=== PATIENT | female | born 1940 | race Native Hawaiian/Other Pacific Islander ===

== ENCOUNTER 2016-12-14 10:13 | Outpatient (CLI) | payer OTHER, MEDICARE ==
[~2016-12-14 10:13] MED LIST: ASA LO-DOSE81 MG OR; CETI10TA PO; CIPR500T PO; FISH OIL1000 M1 OR; HYDR25TA15 PO; LANS30CA PO; LEVO0.0529 PO; MIRAPEX0.5 MG OR; PHEN100C15 PO; VITA D-1000 OR; Z-PAK PO
== END 2016-12-14 19:02 | disposition home or self-care (01) ==
LOC: RAD 10:13
DX: M54.2 Cervicalgia (principal)

== ENCOUNTER 2016-12-15 07:50 | Outpatient (CLI) | payer OTHER, MEDICARE ==
[2016-12-15 08:53] LABS: POTASSIUM 3.6 mmol/L (3.6-5.2); SODIUM 138 mmol/L (136-145)
== END 2016-12-15 19:55 | disposition home or self-care (01) ==
LOC: LABW 07:50
PROVIDERS: Internal Medicine
DX: E03.8 Other specified hypothyroidism (principal); G40.909 Epilepsy, unspecified, not intractable, without status epilepticus
CPT/HCPCS: 36415; 80053; 80061; 80185; 83735; 84439; 84443

== ENCOUNTER 2016-12-29 10:57 | Outpatient (CLI) | payer OTHER, MEDICARE ==
[2016-12-29 11:27] LABS: PLATELET COUNT 212 K/uL (152-353)
[2016-12-29 12:54] LABS: POTASSIUM 3.8 mmol/L (3.6-5.2); SODIUM 136 mmol/L (136-145)
== END 2016-12-29 19:31 | disposition home or self-care (01) ==
LOC: LABW 10:57
PROVIDERS: Internal Medicine Hematology & Oncology
DX: C83.18 Mantle cell lymphoma, lymph nodes of multiple sites (principal)
CPT/HCPCS: 36415; 80053; 83615; 85027

== ENCOUNTER 2016-12-29 11:58 | Outpatient (CLI) | payer OTHER, MEDICARE | END 2016-12-29 19:31 | disposition home or self-care (01) | LOC: RAD 11:58 | DX: M79.604 Pain in right leg (principal) ==

== ENCOUNTER 2017-03-28 10:04 | Outpatient (CLI) | payer OTHER, MEDICARE ==
[2017-03-28 10:29] LABS: PLATELET COUNT 188 K/uL (152-353)
[2017-03-28 10:45] LABS: SODIUM 139 mmol/L (136-145)
== END 2017-03-28 19:21 | disposition home or self-care (01) ==
LOC: LABW 10:04
PROVIDERS: Internal Medicine Hematology & Oncology
DX: C83.18 Mantle cell lymphoma, lymph nodes of multiple sites (principal)
CPT/HCPCS: 36415; 80053; 83615; 85027

== ENCOUNTER 2017-04-11 11:09 | Outpatient (CLI) | payer OTHER, MEDICARE ==
[2017-04-11 11:41] LABS: POTASSIUM 4.9 mmol/L (3.6-5.2); SODIUM 140 mmol/L (136-145)
== END 2017-04-11 12:15 | disposition home or self-care (01) ==
LOC: LABW 11:09
PROVIDERS: Neurological Surgery
DX: I67.1 Cerebral aneurysm, nonruptured (principal); Z51.81 Encounter for therapeutic drug level monitoring
CPT/HCPCS: 36415; 80048; 85610; 85730

== ENCOUNTER 2017-05-23 09:54 | Outpatient (CLI) | payer OTHER, MEDICARE ==
[2017-05-23 10:28] LABS: PLATELET COUNT 196 K/uL (152-353)
[2017-05-23 10:52] LABS: POTASSIUM 4.2 mmol/L (3.6-5.2); SODIUM 141 mmol/L (136-145)
== END 2017-05-23 19:14 | disposition home or self-care (01) ==
LOC: LABW 09:54
PROVIDERS: Internal Medicine Hematology & Oncology
DX: C83.18 Mantle cell lymphoma, lymph nodes of multiple sites (principal)
CPT/HCPCS: 36415; 80053; 83615; 85027

== ENCOUNTER 2017-08-24 12:07 | Emergency (ER) | payer OTHER, MEDICARE ==
[~2017-08-24] VITALS: Ht 175.3 cm; Wt 59.0 kg
[2017-08-24 12:15] VITALS: TEMP 98.3
[2017-08-24 15:24] VITALS: BP 132/76
== END 2017-08-24 15:54 | disposition home or self-care (01) ==
LOC: ED 12:07
DX: S72.091A Other fracture of head and neck of right femur, initial encounter for closed fracture (principal); W18.39XA Other fall on same level, initial encounter; Y92.098 Other place in other non-institutional residence as the place of occurrence of the external cause
CPT/HCPCS: 96372; 99283; J1885

== ENCOUNTER 2017-09-24 11:00 | Outpatient (CLI) | payer OTHER, MEDICARE ==
[2017-09-24 11:50] LABS: PLATELET COUNT 173 K/uL (152-353)
[2017-09-24 12:38] LABS: POTASSIUM 3.8 mmol/L (3.6-5.2); SODIUM 139 mmol/L (136-145)
== END 2017-09-24 19:05 | disposition home or self-care (01) ==
LOC: LABW 11:00
PROVIDERS: Internal Medicine Hematology & Oncology
DX: C83.18 Mantle cell lymphoma, lymph nodes of multiple sites (principal)
CPT/HCPCS: 36415; 80053; 83615; 85027

== ENCOUNTER 2017-10-15 09:04 | Outpatient (CLI) | payer OTHER, MEDICARE | END 2017-10-15 19:16 | disposition home or self-care (01) | LOC: MAMMO 09:04 | DX: Z12.31 Encounter for screening mammogram for malignant neoplasm of breast (principal); M81.0 Age-related osteoporosis without current pathological fracture ==

== ENCOUNTER 2017-11-01 10:50 | Outpatient (CLI) | payer OTHER, MEDICARE ==
[2017-11-01 11:10] LABS: PLATELET COUNT 197 K/uL (152-353)
[2017-11-01 11:15] LABS: POTASSIUM 3.8 mmol/L (3.6-5.2); SODIUM 139 mmol/L (136-145)
== END 2017-11-01 22:32 | disposition home or self-care (01) ==
LOC: LABW 10:50
PROVIDERS: Internal Medicine Hematology & Oncology
DX: C83.18 Mantle cell lymphoma, lymph nodes of multiple sites (principal); E55.9 Vitamin D deficiency, unspecified
CPT/HCPCS: 36415; 80053; 82306; 85027

== ENCOUNTER 2017-11-10 10:45 | Emergency (ER) | payer OTHER, MEDICARE ==
[~2017-11-10] VITALS: Ht 175.3 cm; Wt 59.0 kg
[2017-11-10 10:50] VITALS: BP 181/88; TEMP 98.4
[2017-11-10 11:37] LABS: PLATELET COUNT 203 K/uL (152-353)
== END 2017-11-10 12:45 | disposition home or self-care (01) ==
LOC: ED 10:45
DX: R59.9 Enlarged lymph nodes, unspecified (principal); Z98.890 Other specified postprocedural states
CPT/HCPCS: 36415; 85027; 99283

== ENCOUNTER 2017-11-13 09:41 | Outpatient (CLI) | payer OTHER, MEDICARE | END 2017-11-13 19:06 | disposition home or self-care (01) | LOC: US 09:41 | DX: K11.8 Other diseases of salivary glands (principal) ==

== ENCOUNTER 2018-02-28 10:05 | Outpatient (CLI) | payer OTHER, MEDICARE | END 2018-02-28 19:28 | disposition home or self-care (01) | LOC: RESP 10:05 | DX: I72.8 Aneurysm of other specified arteries (principal); J44.9 Chronic obstructive pulmonary disease, unspecified | CPT/HCPCS: 94640; 94664 ==

== ENCOUNTER 2018-03-15 08:57 | Outpatient (CLI) | payer OTHER, MEDICARE | END 2018-03-15 09:35 | disposition short-term general hospital (02) | LOC: AMB 08:57 | DX: M25.551 Pain in right hip (principal); W18.39XA Other fall on same level, initial encounter; Y92.098 Other place in other non-institutional residence as the place of occurrence of the external cause | CPT/HCPCS: A0425; A0427 ==

== ENCOUNTER 2018-03-28 17:04 | Outpatient (CLI) | payer OTHER, MEDICARE ==
[2018-03-28 17:20] LABS: PLATELET COUNT 604 K/uL (152-353)
[2018-03-28 17:44] LABS: POTASSIUM 3.9 mmol/L (3.6-5.2)
== END 2018-03-28 19:13 | disposition home or self-care (01) ==
LOC: LABW 17:04
PROVIDERS: Internal Medicine Hematology & Oncology
DX: C83.18 Mantle cell lymphoma, lymph nodes of multiple sites (principal)
CPT/HCPCS: 36415; 80053; 83615; 85027

== ENCOUNTER 2018-04-19 10:25 | Outpatient (CLI) | payer OTHER, MEDICARE | END 2018-04-19 23:15 | disposition home or self-care (01) | LOC: LABW 10:25 | DX: I67.1 Cerebral aneurysm, nonruptured (principal); Z79.01 Long term (current) use of anticoagulants; Z51.81 Encounter for therapeutic drug level monitoring | CPT/HCPCS: 36415; 82565; 84520 ==

== ENCOUNTER 2018-07-07 08:42 | Emergency (ER) | payer OTHER, MEDICARE ==
[~2018-07-07] VITALS: Ht 175.3 cm; Wt 56.7 kg
[2018-07-07 08:53] VITALS: BP 127/80; TEMP 99.5
== END 2018-07-07 12:00 | disposition home or self-care (01) ==
LOC: ED 08:42
DX: S70.02XA Contusion of left hip, initial encounter (principal); S72.115A Nondisplaced fracture of greater trochanter of left femur, initial encounter for closed fracture; W18.39XA Other fall on same level, initial encounter; Y92.89 Other specified places as the place of occurrence of the external cause
CPT/HCPCS: 99282; J2175; J2405

== ENCOUNTER 2018-07-13 15:31 | Outpatient (CLI) | payer OTHER, MEDICARE | END 2018-07-13 16:02 | disposition short-term general hospital (02) | LOC: AMB 15:31 | DX: M25.552 Pain in left hip (principal); W19.XXXA Unspecified fall, initial encounter; Y93.89 Activity, other specified; Y92.89 Other specified places as the place of occurrence of the external cause | CPT/HCPCS: A0425; A0427 ==

== ENCOUNTER 2018-07-26 12:12 | Outpatient (CLI) | payer OTHER, MEDICARE | END 2018-07-26 22:19 | disposition home or self-care (01) | LOC: US 12:12 | DX: M79.89 Other specified soft tissue disorders (principal) ==

== ENCOUNTER 2018-10-09 15:09 | Outpatient (CLI) | payer OTHER, MEDICARE ==
[2018-10-09 15:34] LABS: PLATELET COUNT 199 K/uL (152-353)
[2018-10-09 15:53] LABS: POTASSIUM 3.6 mmol/L (3.6-5.2)
== END 2018-10-09 21:17 | disposition home or self-care (01) ==
LOC: LABW 15:09
PROVIDERS: Internal Medicine Hematology & Oncology
DX: C83.18 Mantle cell lymphoma, lymph nodes of multiple sites (principal)
CPT/HCPCS: 36415; 80053; 83605; 85027

== ENCOUNTER 2019-01-27 10:19 | Outpatient (CLI) | payer OTHER, MEDICARE | END 2019-01-27 20:31 | disposition home or self-care (01) | LOC: LAB 10:19 | DX: N39.0 Urinary tract infection, site not specified (principal) | CPT/HCPCS: 87077; 87086; 87088; 87185; 87186 ==

== ENCOUNTER 2019-02-05 12:29 | Outpatient (CLI) | payer OTHER, MEDICARE ==
[2019-02-05 12:47] LABS: PLATELET COUNT 202 K/uL (152-353)
[2019-02-05 13:17] LABS: POTASSIUM 4.2 mmol/L (3.6-5.2)
== END 2019-02-05 20:06 | disposition home or self-care (01) ==
LOC: LABW 12:29
PROVIDERS: Nurse Practitioner Family
DX: C83.18 Mantle cell lymphoma, lymph nodes of multiple sites (principal); E55.9 Vitamin D deficiency, unspecified
CPT/HCPCS: 36415; 80053; 82306; 83615; 85027

== ENCOUNTER 2019-03-17 11:10 | Outpatient (CLI) | payer OTHER, MEDICARE | END 2019-03-17 22:46 | disposition home or self-care (01) | LOC: RESP 11:10 | DX: J44.9 Chronic obstructive pulmonary disease, unspecified (principal) ==

== ENCOUNTER 2019-09-17 13:44 | Outpatient (CLI) | payer OTHER, MEDICARE ==
[2019-09-17 14:22] LABS: PLATELET COUNT 169 K/uL (152-353)
[2019-09-17 14:29] LABS: POTASSIUM 4.1 mmol/L (3.6-5.2)
== END 2019-09-17 22:00 | disposition home or self-care (01) ==
LOC: LABW 13:44
PROVIDERS: Internal Medicine Medical Oncology
DX: E55.9 Vitamin D deficiency, unspecified (principal); C83.18 Mantle cell lymphoma, lymph nodes of multiple sites
CPT/HCPCS: 36415; 80053; 82306; 83615; 85027

== ENCOUNTER 2019-10-10 07:02 | Outpatient (CLI) | payer OTHER, MEDICARE ==
[2019-10-10 07:48] LABS: PLATELET COUNT 226 K/uL (152-353)
[2019-10-10 08:14] LABS: POTASSIUM 4.2 mmol/L (3.6-5.2)
== END 2019-10-10 19:46 | disposition home or self-care (01) ==
LOC: LABW 07:02
PROVIDERS: Internal Medicine
DX: Z00.00 Encounter for general adult medical examination without abnormal findings (principal); Z13.820 Encounter for screening for osteoporosis; R56.9 Unspecified convulsions; R82.998 Other abnormal findings in urine; Z79.899 Other long term (current) drug therapy
CPT/HCPCS: 36415; 80053; 80061; 80185; 81000; 82306; 84439; 84443; 85027; 87086; 87088

== ENCOUNTER 2019-10-22 08:57 | Outpatient (CLI) | payer OTHER, MEDICARE | END 2019-10-22 19:28 | disposition home or self-care (01) | LOC: MAMMO 08:57 | DX: Z12.31 Encounter for screening mammogram for malignant neoplasm of breast (principal); Z13.820 Encounter for screening for osteoporosis; N95.8 Other specified menopausal and perimenopausal disorders ==

== ENCOUNTER 2019-11-10 11:03 | Outpatient (CLI) | payer OTHER, MEDICARE ==
[~2019-11-10] VITALS: Ht 175.3 cm; Wt 59.0 kg
[2019-11-10 11:20] VITALS: BP 172/86; TEMP 97.6
== END 2019-11-10 12:33 | disposition home or self-care (01) ==
LOC: INF 11:03
DX: M81.0 Age-related osteoporosis without current pathological fracture (principal)
CPT/HCPCS: 36415; 82040; 82310; 96372; J0897

== ENCOUNTER 2019-12-04 13:48 | Outpatient (CLI) | payer OTHER, MEDICARE | END 2019-12-04 22:43 | disposition home or self-care (01) | LOC: LAB 13:48 | DX: E03.8 Other specified hypothyroidism (principal) | CPT/HCPCS: 84439; 84443 ==

== ENCOUNTER 2020-02-26 11:15 | Outpatient (CLI) | payer OTHER, MEDICARE ==
[2020-02-26 11:39] LABS: PLATELET COUNT 207 K/uL (152-353)
[2020-02-26 11:57] LABS: POTASSIUM 3.8 mmol/L (3.6-5.2)
== END 2020-02-26 22:36 | disposition home or self-care (01) ==
LOC: LABW 11:15
PROVIDERS: Internal Medicine Medical Oncology
DX: C83.18 Mantle cell lymphoma, lymph nodes of multiple sites (principal); R91.1 Solitary pulmonary nodule; E55.9 Vitamin D deficiency, unspecified
CPT/HCPCS: 36415; 80053; 83615; 85027

== ENCOUNTER 2020-05-10 10:54 | Outpatient (CLI) | payer OTHER, MEDICARE ==
[~2020-05-10] VITALS: Ht 175.3 cm; Wt 59.0 kg
== END 2020-05-10 21:49 | disposition home or self-care (01) ==
LOC: INF 10:54
DX: M81.0 Age-related osteoporosis without current pathological fracture (principal)
CPT/HCPCS: 36415; 82310; 96372; J0897

== ENCOUNTER 2020-09-02 12:38 | Outpatient (CLI) | payer OTHER, MEDICARE ==
[2020-09-02 12:56] LABS: PLATELET COUNT 234 K/uL (152-353)
[2020-09-02 14:14] LABS: POTASSIUM 4.2 mmol/L (3.6-5.2)
== END 2020-09-02 23:17 | disposition home or self-care (01) ==
LOC: LABW 12:38
PROVIDERS: Internal Medicine Medical Oncology
DX: C34.30 Malignant neoplasm of lower lobe, unspecified bronchus or lung (principal); C83.18 Mantle cell lymphoma, lymph nodes of multiple sites; R91.1 Solitary pulmonary nodule; E55.9 Vitamin D deficiency, unspecified
CPT/HCPCS: 36415; 80053; 83615; 85027

== ENCOUNTER 2020-11-15 11:13 | Outpatient (CLI) | payer OTHER, MEDICARE | END 2020-11-15 20:39 | disposition home or self-care (01) | LOC: MAMMO 11:13 | PROVIDERS: ATTEND Internal Medicine | DX: Z12.31 Encounter for screening mammogram for malignant neoplasm of breast (principal) ==

== ENCOUNTER 2020-12-08 07:47 | Outpatient (CLI) | payer OTHER, MEDICARE ==
[~2020-12-08] VITALS: Ht 175.3 cm; Wt 63.5 kg
[2020-12-08 11:05] VITALS: BP 190/90; TEMP 98
== END 2020-12-08 12:28 | disposition home or self-care (01) ==
LOC: INF 07:47
PROVIDERS: ATTEND Internal Medicine
DX: M81.0 Age-related osteoporosis without current pathological fracture (principal)
CPT/HCPCS: 82310; 96372; J0897

== ENCOUNTER 2020-12-29 15:14 | Outpatient (CLI) | payer OTHER, MEDICARE | END 2020-12-29 19:45 | disposition home or self-care (01) | LOC: CT 15:14 | PROVIDERS: ATTEND Internal Medicine | DX: R51.9 Headache, unspecified (principal) ==

== ENCOUNTER 2021-02-08 07:34 | Outpatient (CLI) | payer OTHER, MEDICARE | END 2021-02-08 19:04 | disposition home or self-care (01) | LOC: LABW 07:34 | PROVIDERS: ATTEND Specialist | DX: G40.909 Epilepsy, unspecified, not intractable, without status epilepticus (principal); Z51.81 Encounter for therapeutic drug level monitoring | CPT/HCPCS: 36415; 80185 ==

== ENCOUNTER 2021-03-09 07:23 | Outpatient (CLI) | payer OTHER, MEDICARE ==
[2021-03-09 08:27] LABS: PLATELET COUNT 227 K/uL (152-353)
[2021-03-09 08:43] LABS: POTASSIUM 4.5 mmol/L (3.6-5.2)
== END 2021-03-09 19:15 | disposition home or self-care (01) ==
LOC: LABW 07:23
PROVIDERS: ATTEND Internal Medicine
DX: Z00.00 Encounter for general adult medical examination without abnormal findings (principal); C34.30 Malignant neoplasm of lower lobe, unspecified bronchus or lung; C83.18 Mantle cell lymphoma, lymph nodes of multiple sites; R91.1 Solitary pulmonary nodule; E55.9 Vitamin D deficiency, unspecified; Z13.820 Encounter for screening for osteoporosis; Z79.899 Other long term (current) drug therapy
CPT/HCPCS: 36415; 80053; 80061; 81000; 82306; 83615; 84439; 84443; 85027

== ENCOUNTER 2021-03-21 13:56 | Outpatient (CLI) | payer OTHER, MEDICARE | END 2021-03-21 19:56 | disposition home or self-care (01) | LOC: RESP 13:56 | PROVIDERS: ATTEND Specialist | DX: G40.909 Epilepsy, unspecified, not intractable, without status epilepticus (principal) ==

== ENCOUNTER 2021-04-15 15:41 | Emergency (ER) | payer OTHER, MEDICARE ==
[~2021-04-15] VITALS: Ht 175.3 cm; Wt 61.2 kg
[2021-04-15 15:41] VITALS: TEMP 98.3
[2021-04-15 16:58] LABS: PLATELET COUNT 185 K/uL (152-353)
[2021-04-15 17:10] LABS: POTASSIUM 4.1 mmol/L (3.6-5.2); SODIUM 143 mmol/L (136-145)
[2021-04-15 18:56] VITALS: BP 130/78
== END 2021-04-15 18:56 | disposition home or self-care (01) ==
LOC: ED 15:41
PROVIDERS: Family Medicine
DX: I10 Essential (primary) hypertension (principal); R51.9 Headache, unspecified; R91.8 Other nonspecific abnormal finding of lung field
CPT/HCPCS: 80053; 84484; 85027; 85379; 93005; 99283

== ENCOUNTER 2021-05-16 15:20 | Outpatient (CLI) | payer OTHER, MEDICARE | END 2021-05-16 21:31 | disposition home or self-care (01) | LOC: MRI 15:20 | PROVIDERS: ATTEND Orthopaedic Surgery | DX: T84.84XA Pain due to internal orthopedic prosthetic devices, implants and grafts, initial encounter (principal); Z96.641 Presence of right artificial hip joint; M54.5 Low back pain; M51.37 Other intervertebral disc degeneration, lumbosacral region; M48.062 Spinal stenosis, lumbar region with neurogenic claudication; R29.898 Other symptoms and signs involving the musculoskeletal system ==

== ENCOUNTER 2021-06-08 12:45 | Outpatient (CLI) | payer OTHER, MEDICARE | END 2021-06-08 19:54 | disposition home or self-care (01) | LOC: INF 12:45 | PROVIDERS: ATTEND Internal Medicine | DX: M81.0 Age-related osteoporosis without current pathological fracture (principal) | CPT/HCPCS: 36415; 82310; 82330 ==

== ENCOUNTER 2021-06-15 13:35 | Outpatient (CLI) | payer OTHER, MEDICARE ==
[2021-06-15 14:02] LABS: POTASSIUM 4.1 mmol/L (3.6-5.2)
== END 2021-06-15 19:04 | disposition home or self-care (01) ==
LOC: LABW 13:35
PROVIDERS: ATTEND Internal Medicine
DX: E83.59 Other disorders of calcium metabolism (principal)
CPT/HCPCS: 36415; 80053

== ENCOUNTER 2021-09-08 13:41 | Outpatient (CLI) | payer OTHER, MEDICARE ==
[2021-09-08 13:56] LABS: PLATELET COUNT 249 K/uL (152-353)
[2021-09-08 14:06] LABS: POTASSIUM 3.9 mmol/L (3.6-5.2)
== END 2021-09-08 19:03 | disposition home or self-care (01) ==
LOC: LABW 13:41
PROVIDERS: ATTEND Internal Medicine Medical Oncology
DX: C34.30 Malignant neoplasm of lower lobe, unspecified bronchus or lung (principal); C83.18 Mantle cell lymphoma, lymph nodes of multiple sites; R91.1 Solitary pulmonary nodule; E55.9 Vitamin D deficiency, unspecified
CPT/HCPCS: 36415; 80053; 83615; 85027

== ENCOUNTER 2021-11-25 13:50 | Outpatient (CLI) | payer OTHER, MEDICARE ==
[2021-11-25 14:08] LABS: PLATELET COUNT 257 K/uL (152-353)
== END 2021-11-25 20:37 | disposition home or self-care (01) ==
LOC: LABW 13:50
PROVIDERS: ATTEND Internal Medicine Medical Oncology
DX: C34.30 Malignant neoplasm of lower lobe, unspecified bronchus or lung (principal); C83.18 Mantle cell lymphoma, lymph nodes of multiple sites; R91.1 Solitary pulmonary nodule; E55.9 Vitamin D deficiency, unspecified
CPT/HCPCS: 36415; 80053; 83615; 85027

== ENCOUNTER 2021-12-07 12:46 | Outpatient (CLI) | payer OTHER, MEDICARE ==
[2021-12-07 15:21] LABS: PLATELET COUNT 233 K/uL (152-353)
== END 2021-12-07 19:39 | disposition home or self-care (01) ==
LOC: LAB 12:46
PROVIDERS: ATTEND Internal Medicine
DX: I10 Essential (primary) hypertension (principal)
CPT/HCPCS: 80053; 80061; 84439; 84443; 85027

== ENCOUNTER 2021-12-16 09:42 | Outpatient (CLI) | payer OTHER, MEDICARE | END 2021-12-16 19:56 | disposition home or self-care (01) | LOC: MAMMO 09:42 | PROVIDERS: ATTEND Internal Medicine | DX: Z12.31 Encounter for screening mammogram for malignant neoplasm of breast (principal) ==

== ENCOUNTER 2022-04-08 10:59 | Emergency (ER) | payer OTHER, MEDICARE ==
[~2022-04-08] VITALS: Ht 175.3 cm; Wt 61.2 kg
[2022-04-08 12:17] VITALS: BP 146/84; TEMP 98.5
== END 2022-04-08 12:17 | disposition home or self-care (01) ==
LOC: ED 10:59
DX: J02.9 Acute pharyngitis, unspecified (principal); U07.1 COVID-19
CPT/HCPCS: 87635; 87651; 99283; U0003

== ENCOUNTER 2022-07-05 14:25 | Outpatient (CLI) | payer OTHER, MEDICARE ==
[2022-07-05 14:53] LABS: PLATELET COUNT 229 K/uL (152-353)
[2022-07-05 15:03] LABS: POTASSIUM 3.8 mmol/L (3.6-5.2)
== END 2022-07-05 19:00 | disposition home or self-care (01) ==
LOC: LABW 14:25
PROVIDERS: ATTEND Nurse Practitioner Family
DX: C34.30 Malignant neoplasm of lower lobe, unspecified bronchus or lung (principal); C83.18 Mantle cell lymphoma, lymph nodes of multiple sites; R91.1 Solitary pulmonary nodule; E55.9 Vitamin D deficiency, unspecified
CPT/HCPCS: 80053; 85027

== ENCOUNTER 2022-11-16 09:19 | Outpatient (CLI) | payer OTHER, MEDICARE ==
[2022-11-16 10:21] LABS: PLATELET COUNT 340 K/uL (152-353)
== END 2022-11-16 18:59 | disposition home or self-care (01) ==
LOC: LABW 09:19
PROVIDERS: ATTEND Internal Medicine
DX: I10 Essential (primary) hypertension (principal); C83.10 Mantle cell lymphoma, unspecified site; M06.9 Rheumatoid arthritis, unspecified; G40.909 Epilepsy, unspecified, not intractable, without status epilepticus; E03.8 Other specified hypothyroidism; R82.998 Other abnormal findings in urine
CPT/HCPCS: 80053; 80061; 80185; 81000; 84439; 84443; 85027; 86431; 87077; 87086; 87088; 87186

== ENCOUNTER 2022-11-22 09:56 | Outpatient (CLI) | payer OTHER, MEDICARE | END 2022-11-22 18:59 | disposition home or self-care (01) | LOC: CT 09:56 | PROVIDERS: ATTEND Internal Medicine | DX: R19.01 Right upper quadrant abdominal swelling, mass and lump (principal) | CPT/HCPCS: Q9963 ==

== ENCOUNTER 2023-01-04 14:37 | Outpatient (CLI) | payer OTHER, MEDICARE ==
[2023-01-04 14:57] LABS: PLATELET COUNT 232 K/uL (152-353)
[2023-01-04 15:09] LABS: POTASSIUM 4.7 mmol/L (3.6-5.2)
== END 2023-01-04 19:21 | disposition home or self-care (01) ==
LOC: LABW 14:37
PROVIDERS: ATTEND Nurse Practitioner Family
DX: C83.18 Mantle cell lymphoma, lymph nodes of multiple sites (principal); C34.30 Malignant neoplasm of lower lobe, unspecified bronchus or lung; E55.9 Vitamin D deficiency, unspecified; R91.1 Solitary pulmonary nodule
CPT/HCPCS: 36415; 80053; 83615; 85027

== ENCOUNTER 2023-02-01 17:15 | Observation (INO) | payer OTHER, MEDICARE ==
[2023-02-01] VITALS (9 sets, daily range): BP systolic 166–203; BP diastolic 64–90; TEMP 98.1
[~2023-02-01] VITALS: Ht 175.3 cm; Wt 63.0 kg
[2023-02-01 19:27] LABS: PLATELET COUNT 226 K/uL (152-353)
[2023-02-01 19:30] LABS: POTASSIUM 4.1 mmol/L (3.6-5.2)
[2023-02-02 01:21] VITALS: BP 206/99; TEMP 97.6; Ht 175.3 cm; Wt 63.0 kg
[2023-02-02 04:00] VITALS: BP 130/74; TEMP 98.2
[2023-02-02 05:38] LABS: PLATELET COUNT 202 K/uL (152-353)
[2023-02-02 05:58] LABS: POTASSIUM 3.9 mmol/L (3.6-5.2)
[2023-02-02 08:15] VITALS: BP 147/76; TEMP 97.2
== END 2023-02-02 11:47 | disposition home or self-care (01) ==
LOC: ED 17:15 → MED/SURG 22:00
PROVIDERS: ADMIT Emergency Medicine; ATTEND Internal Medicine
DX: S42.354A Nondisplaced comminuted fracture of shaft of humerus, right arm, initial encounter for closed fracture (principal); J44.9 Chronic obstructive pulmonary disease, unspecified; E03.8 Other specified hypothyroidism; Z85.118 Personal history of other malignant neoplasm of bronchus and lung; G40.802 Other epilepsy, not intractable, without status epilepticus; I10 Essential (primary) hypertension; W17.89XA Other fall from one level to another, initial encounter; Y92.89 Other specified places as the place of occurrence of the external cause
CPT/HCPCS: 36415; 80053; 85027; 96361; 96374; 96376; 99221; 99283; 99284; G0378; J2270

== ENCOUNTER 2023-03-16 01:28 | Emergency (ER) | payer OTHER, MEDICARE ==
[~2023-03-16] VITALS: Ht 175.3 cm; Wt 60.3 kg
[2023-03-16 02:52] VITALS: BP 145/69; TEMP 97.6
== END 2023-03-16 02:52 | disposition home or self-care (01) ==
LOC: ED 01:28
DX: S51.812A Laceration without foreign body of left forearm, initial encounter (principal); W17.89XA Other fall from one level to another, initial encounter
CPT/HCPCS: 99283